=== PATIENT | male | born 1945 | race Caucasian/White ===

== ENCOUNTER 2016-08-09 10:48 | Emergency (ER) | payer MEDICARE ==
[~2016-08-09 10:48] MED LIST: ASPI325T4 PO; ATOR20TA58 PO; BRIM5DRO2 OU; CHOL100017 PO; ESCI10TA PO; HYDR-971 PO; LACO50TA PO; LEVE250T30 PO; LEVO75TA5 PO; METF500T PO; METH-37 PO; METO5TAB4 PO; NAPR550T PO; POTA10TA17 PO; PRED-220 PO; TRAM50TA PO; VENTOLIN HFA18 GM INH
--- NOTE | 2016-08-09 11:09 | PHYS DOC ---
Past Medical History Past Medical History: Diabetes-Type II, Hypothyroid, Seizure Additional Past Medical Histor: GLAUCOMA, CATARACTS, L SIDE HEART BLOCK, PITUITARY TUMOR,POSS. CVA Past Surgical History: Other Additional Past Surgical Histo: right shoulder Alcohol Use: Occasionally Drug Use: None Adult General Chief Complaint Chief Complaint: MECHANICAL FALL HPI HPI 71-year-old male with known history of pituitary adenoma and seizure disorder who had a witnessed fall approximately 45 minutes prior to arrival by his . Patient is on anticoagulants. Patient has been acutely altered since the fall but she denies any seizure activity with this event. Patient cannot answer my questions but does respond to painful stimulus. He is moving all his extremities. He is acutely altered but does not appear overtly toxic or in distress. At the bedside states she awoke at 8 AM and found the patient sitting upright with noted skin tears to his right forearm but the patient appeared confused and unsure how he got the skin tears. She believes he was normal last evening prior to bed. She does not believe the patient was displaying any seizure activity with his fall or while she was awake today. Patient can not provide adequate history secondary to being acutely altered. Review of Systems Review of Systems A 10 point review systems is unable be obtained due to the patient's mental status. Current Medications Current Medications Current Medications Medications (Trade) Dose Ordered Sig/Sim Start Time Stop Time Status Last Admin Dose Admin Alteplase, Recombinant 0 ml @ 0 mls/hr Q1H 08/09/16 12:15 08/09/16 12:16 UNV Alteplase, Recombinant 7.2 mg/Miscellaneous 7.2 ml @ 432 mls/hr 1X ONCE 08/09/16 12:15 08/09/16 12:16 DC Dextrose (Dextrose 50%-Water Syringe) 25 gm 1X ONCE 08/09/16 13:00 08/09/16 13:01 DC 08/09/16 12:50 25 GM Labetalol HCl 10 mg 10 mg PRN Q10MIN PRN 08/09/16 12:15 08/09/16 13:51 DC Nicardipine HCl/ Sodium Chloride (Cardene/Iv Sodium Chloride 0.9% 250ml) 270 ml @ 27 mls/hr CONT PRN PRN 08/09/16 12:15 08/09/16 13:51 DC Sodium Chloride (Iv Sodium Chloride 0.9% 50ml) 50 ml @ 0 mls/hr 1X ONCE 08/09/16 12:15 08/09/16 12:16 DC Allergies Allergies Allergies Coded Allergies Type Severity Reaction Last Updated Verified No Known Drug Allergies 06/02/15 No Physical Exam Physical Exam Constitutional: Well developed, well nourished, no acute distress, non-toxic appearance. [] HENT: Normocephalic, atraumatic, bilateral external ears normal, oropharynx moist, no oral exudates, nose normal. [] Eyes: PERRLA, lateral gaze preference to the right, conjunctiva normal, no discharge. [] Neck: Normal range of motion, no tenderness, supple, no stridor. [] Cardiovascular:Heart rate regular rhythm, no murmur [] Lungs & Thorax: Bilateral breath sounds clear to auscultation [] Abdomen: Bowel sounds normal, soft, no tenderness, no masses, no pulsatile masses. [] Skin: Warm, dry, no erythema, no rash. [] Back: No tenderness, no CVA tenderness. [] Extremities: No tenderness, there is a skin tear to the right forearm, no cyanosis, no clubbing, ROM intact, no edema. [] Neurologic: Alert and oriented X 1, there is some noted left-sided weakness to the lower extremity, patient has a gaze preference to the right but can track to the midline bilaterally, a bedside NIHSS is 14. [] Psychologic: Affect normal, judgement normal, mood normal. [] Current Patient Data Vital Signs Vital Signs Date Time Temp Pulse Resp B/P Pulse Ox O2 Delivery O2 Flow Rate FiO2 08/09/16 12:49 82 14 106/78 94 Room Air 4 08/09/16 10:50 97.4 97.4 Lab Values Laboratory Tests Test 08/09/16 11:07 08/09/16 11:34 08/09/16 12:39 Urine Collection Type Unknown Urine Color Yellow Urine Clarity Clear Urine pH 6.5 Urine Specific [place] 1.010 Urine Protein Negativemg/dL (NEG-TRACE) Urine Glucose (UA) Negativemg/dL (NEG) Urine Ketones (Stick) Negativemg/dL (NEG) Urine Blood Trace (NEG) Urine Nitrite Negative (NEG) Urine Bilirubin Negative (NEG) Urine Urobilinogen Dipstick 0.2mg/dL (0.2 mg/dL) Urine Leukocyte Esterase Negative (NEG) Urine RBC 0/HPF (0-2) Urine WBC 0/HPF (0-4) Urine Bacteria 0/HPF (0-FEW) White Blood Count 13.8x10^3/uL (4.0-11.0) H Red Blood Count 4.86x10^6/uL (4.30-5.70) Hemoglobin 13.5g/dL (13.0-17.5) Hematocrit 41.6% (39.0-53.0) Mean Corpuscular Volume 86fL (79-100) Mean Corpuscular Hemoglobin 28pg (25-35) Mean Corpuscular Hemoglobin Concent 32g/dL (31-37) Red Cell Distribution Width 15.7% (11.5-14.5) H Platelet Count 298x10^3/uL (140-400) Neutrophils (%) (Auto) 53% (31-73) Lymphocytes (%) (Auto) 36% (24-48) Monocytes (%) (Auto) 6% (0-9) Eosinophils (%) (Auto) 3% (0-3) Basophils (%) (Auto) 1% (0-3) Neutrophils # (Auto) 7.4x10^3uL (1.8-7.7) Lymphocytes # (Auto) 5.0x10^3/uL (1.0-4.8) H Monocytes # (Auto) 0.9x10^3/uL (0.0-1.1) Eosinophils # (Auto) 0.4x10^3/uL (0.0-0.7) Basophils # (Auto) 0.2x10^3/uL (0.0-0.2) Prothrombin Time 12.4SEC (11.7-14.0) Prothrombin Time INR 1.0 (0.8-1.1) Sodium Level 123mmol/L (136-145) L Potassium Level 3.9mmol/L (3.5-5.1) Chloride Level 89mmol/L (98-107) L Carbon Dioxide Level 27mmol/L (21-32) Anion Gap 7 (6-14) Blood Urea Nitrogen 12mg/dL (8-26) Creatinine 0.8mg/dL (0.7-1.3) Estimated GFR (Cockcroft-Gault) 95.8 Glucose Level 92mg/dL (70-99) Calcium Level 8.8mg/dL (8.5-10.1) Troponin I Quantitative < 0.017ng/mL (0.000-0.055) Glucose (Fingerstick) 67mg/dL (70-99) L Laboratory Tests 08/09/16 11:34 Laboratory Tests 08/09/16 11:34 EKG EKG EKG as interpreted by me shows sinus rhythm with rate of 76 bpm. Intervals are normal. This EKG does not meet STEMI criteria. Radiology/Procedures Radiology/Procedures Exam: AP portable chest. History: Weakness, confusion, fall. Comparison: 04/09/2016. Findings: The heart and mediastinal structures are within normal limits for size. Lungs are without focal consolidation. Linear densities are again seen involving both lungs, compatible with scarring. No pneumothorax or pleural effusion is appreciated. Proximal right humerus demonstrates fixation hardware. Impression: 1. No acute cardiopulmonary process. CT head without contrast History: Fall, altered mental status, anticoagulated. Comparison: CT head 04/09/2016. Procedure: Axial images are obtained of the head from the skull base through the vertex without IV contrast. One or more of the following individualized dose reduction techniques were utilized for the study: Automated exposure control Adjustment of mA and/or kV according to patient's size Use of iterative reconstruction technique. Findings: The ventricles and sulci are normal for the patient's age. No mass-effect, intracranial mass, midline shift, hemorrhage or obvious acute infarction is identified. Basilar cisterns are patent. Patchy, nonspecific white matter low attenuation is seen, probably from chronic microvascular ischemic disease. Bone windows demonstrate no significant calvarial abnormality. The visualized paranasal sinuses appear clear. Impression: 1. No acute intracranial process. Please note that CT can be relatively insensitive to acute ischemic infarction for up to 24 hours after symptom onset. 2. Mild, patchy, nonspecific white matter low attenuation, probably from chronic microvascular ischemic disease. Course & Med Decision Making Course & Med Decision Making Pertinent Labs and Imaging studies reviewed. (See chart for details) This 71-year-old male who had a witnessed fall at home will receive a head CT. Patient is on anticoagulants and is acutely altered. We will immediately rule out any acute traumatic brain injury and then the patient will obtain full laboratory workup for his ongoing altered mental status. The does not believe that the patient did not have a seizure prior to his fall. At this time, his laboratory workup is unremarkable. His initial blood glucose was 92 but it trended down to 67 so half an amp of dextrose was provided. A CT of his head does show suspicion for a hyperdense right-sided MCA and in light of his continued altered mental status and neurologic exam I would like the patient to be emergently transferred to [facility] for possible catheterization and neurologic intervention for acute stroke. It is unclear what the initial time of onset was for his symptoms and as such I do not believe him to be a TPA candidate prior to transport. The case was also discussed with the accepting neurologist, Dr. Armas, at [facility] who agreed to send the patient emergently where he will likely receive interventional radiology on arrival. This was also discussed with the neurologist, Dr. Salinas, who agreed with the transferred to [facility]. Approximately 30 minutes of critical care time were used on this patient in consultation with specialists. His blood pressure remained normotensive while in the department and did not require any intervention. Dragon Disclaimer Dragon Disclaimer This electronic medical record was generated, in whole or in part, using a voice recognition dictation system. Critical Care Time Critical care time was 30 minutes exclusive of procedures. Departure Departure Impression: Primary Impression: Altered mental status Additional Impression: Neurological deficit present Disposition: 02 TRANSFER T-[facility] Admitting Physician: Other Condition: STABLE Referrals: YOBANY LUU MD (PCP) Problem Qualifiers MAGDA MANN DO Aug 09, 2016 11:09
--- NOTE | 2016-08-09 11:28 | EKG ---
[facility] [address] [place] [address] Test Date: 2016-08-09 Test Time: 10:56:12 Pat Name: JULIA SYKES Department: Room: Gender: M [employer]: : 1945 Requested By: MAGDA MANN Order Number: [id number] Reading MD: Measurements Intervals [place] Rate: 76 P: 19 ID: [id number] QRS: 26 QRSD: 80 T: 31 QT: 386 QTc: 439 Interpretive Statements SINUS RHYTHM QRS(T) CONTOUR ABNORMALITY CONSIDER ANTEROSEPTAL MYOCARDIAL DAMAGE POSSIBLY ABNORMAL ECG RI6.01 No previous ECG available for comparison
--- NOTE | 2016-08-09 11:34 | RAD ---
CT head without contrast History: Fall, altered mental status, anticoagulated. Comparison: CT head 04/09/2016. Procedure: Axial images are obtained of the head from the skull base through the vertex without IV contrast. One or more of the following individualized dose reduction techniques were utilized for the study: Automated exposure control Adjustment of mA and/or kV according to patient's size Use of iterative reconstruction technique. Findings: The ventricles and sulci are normal for the patient's age. No mass-effect, intracranial mass, midline shift, hemorrhage or obvious acute infarction is identified. Basilar cisterns are patent. Patchy, nonspecific white matter low attenuation is seen, probably from chronic microvascular ischemic disease. Bone windows demonstrate no significant calvarial abnormality. The visualized paranasal sinuses appear clear. Impression: 1. No acute intracranial process. Please note that CT can be relatively insensitive to acute ischemic infarction for up to 24 hours after symptom onset. 2. Mild, patchy, nonspecific white matter low attenuation, probably from chronic microvascular ischemic disease.
--- NOTE | 2016-08-09 11:35 | RAD ---
Exam: AP portable chest. History: Weakness, confusion, fall. Comparison: 04/09/2016. Findings: The heart and mediastinal structures are within normal limits for size. Lungs are without focal consolidation. Linear densities are again seen involving both lungs, compatible with scarring. No pneumothorax or pleural effusion is appreciated. Proximal right humerus demonstrates fixation hardware. Impression: 1. No acute cardiopulmonary process.
[2016-08-09 11:46] LABS: BASO # 0.2 x10^3/uL (0.0-0.2); BASO % 1 % (0-3); EOS % 3 % (0-3); HEMATOCRIT 41.6 % (39.0-53.0); HEMOGLOBIN 13.5 g/dL (13.0-17.5); LYMPH % 36 % (24-48); MEAN CORPUSCULAR HEMOGLOBIN 28 pg (25-35); MEAN CORPUSCULAR HGB CONC 32 g/dL (31-37); MEAN CORPUSCULAR VOLUME 86 fL (79-100); MONO % 6 % (0-9); NEUT % 53 % (31-73); PLATELET COUNT 298 x10^3/uL (140-400); RED BLOOD COUNT 4.86 x10^6/uL (4.30-5.70); RED CELL DISTRIBUTION WIDTH 15.7 % (11.5-14.5); WHITE BLOOD COUNT 13.8 x10^3/uL (4.0-11.0)
[2016-08-09 11:48] LABS: BILIRUBIN,URINE NEGATIVE (NEG); GLUCOSE,URINE NEGATIVE (NEG); NITRITE,URINE NEGATIVE (NEG); PH,URINE 6.5; PROTEIN,URINE NEGATIVE (NEG-TRACE); UROBILINOGEN,URINE 0.2 mg/dL (0.2 mg/dL)
[2016-08-09 11:52] LABS: BACTERIA,URINE 0 /HPF (0-FEW); RBC,URINE 0 /HPF (0-2); WBC,URINE 0 /HPF (0-4)
[2016-08-09 11:55] LABS: PROTHROMBIN TIME PATIENT 12.4 SEC (11.7-14.0)
[2016-08-09 12:00] LABS: CALCIUM 8.8 mg/dL (8.5-10.1); CREATININE 0.8 mg/dL (0.7-1.3); GFR 95.8; POTASSIUM 3.9 mmol/L (3.5-5.1)
[2016-08-09] MEDS ORDERED: ALTEPLASE IV ONE ×2 (12:15)
[2016-08-09] MEDS ORDERED: TOTAL VOLUME IV ONE (12:15)
[2016-08-09] MEDS ORDERED: LABETALOL 20 MG/4 ML DISP.SYRIN. IV PRN (12:15)
[2016-08-09] MEDS ORDERED: ALTEPLASE 9 MG IV ONE (12:15)
[2016-08-09] MEDS ORDERED: NICARDIPINE HCL 50 MG in IV NORMAL SALINE 250ML 250 ML IV PRN (12:15)
[2016-08-09] MEDS ORDERED: IV NORMAL SALINE 50ML 50 ML IV ONE (12:15)
[2016-08-09] MEDS ORDERED: ALTEPLASE 81 MG IV SCH (12:15)
[2016-08-09 12:49] VITALS: BP 106/78
[2016-08-09] MEDS ORDERED: DEXTROSE 50% 25 GM / 50ML DISP.SYRIN. IV ONE (13:00)
== END 2016-08-09 13:51 | disposition short-term general hospital (02) ==
LOC: ER 10:48
DX: S51.811A Laceration without foreign body of right forearm, initial encounter (principal); R41.82 Altered mental status, unspecified; R29.818 Other symptoms and signs involving the nervous system; R41.0 Disorientation, unspecified; R53.1 Weakness; G40.909 Epilepsy, unspecified, not intractable, without status epilepticus; E11.9 Type 2 diabetes mellitus without complications; E03.9 Hypothyroidism, unspecified; H40.9 Unspecified glaucoma; W18.39XA Other fall on same level, initial encounter; Y93.89 Activity, other specified; Y92.89 Other specified places as the place of occurrence of the external cause; Y99.8 Other external cause status
CPT/HCPCS: 36415; 70450; 71010; 80048; 81001; 82947; 84484; 85027; 85610; 93005; 96374; J7042; 99291-25

== ENCOUNTER 2016-10-14 10:58 | Emergency (ER) | payer MEDICARE ==
[~2016-10-14] VITALS: Ht 172.7 cm; Wt 83.5 kg
[~2016-10-14 10:58] MED LIST changes: -ASPI325T4 PO; +ASPI325T8 PO; -ESCI10TA PO; +ESCITALOPRAM OX10 MG PO
[2016-10-14 12:09] LABS: BASO # 0.1 x10^3/uL (0.0-0.2); BASO % 1 % (0-3); EOS % 1 % (0-3); HEMATOCRIT 30.5 % (39.0-53.0); HEMOGLOBIN 10.1 g/dL (13.0-17.5); LYMPH # 2.2 x10^3/uL (1.0-4.8); LYMPH % 16 % (24-48); MEAN CORPUSCULAR HEMOGLOBIN 28 pg (25-35); MEAN CORPUSCULAR HGB CONC 33 g/dL (31-37); MEAN CORPUSCULAR VOLUME 83 fL (79-100); MONO % 6 % (0-9); NEUT % 76 % (31-73); PLATELET COUNT 296 x10^3/uL (140-400); RED BLOOD COUNT 3.67 x10^6/uL (4.30-5.70); RED CELL DISTRIBUTION WIDTH 14.9 % (11.5-14.5); WHITE BLOOD COUNT 13.4 x10^3/uL (4.0-11.0)
[2016-10-14 12:13] LABS: CALCIUM 8.5 mg/dL (8.5-10.1); CREATININE 0.8 mg/dL (0.7-1.3); GFR 95.8; POTASSIUM 4.4 mmol/L (3.5-5.1)
[2016-10-14 12:19] LABS: PROTHROMBIN TIME PATIENT 12.9 SEC (11.7-14.0)
[2016-10-14 12:20] LABS: ALBUMIN 3.5 g/dL (3.4-5.0); MAGNESIUM 1.9 mg/dL (1.8-2.4); TOTAL BILIRUBIN 0.2 mg/dL (0.2-1.0)
--- NOTE | 2016-10-14 12:59 | RAD ---
Left lower extremity arterial duplex study 10/14/2016 Clinical history: Pale/cold left foot. Technique: Using a combination of real-time ultrasound imaging and color-flow and pulse Doppler imaging techniques, duplex evaluation of the major arterial structures of the left lower extremity was performed. Multiple images were obtained. Findings: Mild to moderate atheromatous/atherosclerotic plaque formation is seen involving the major arterial structures of the left lower extremity. Biphasic arterial waveforms are seen throughout. The peak systolic velocity within the distal left superficial femoral artery is elevated measuring 211 cm/s. When compared to the real-time images there appears to be 50% stenosis in this area. No additional area of stenosis is seen. The left peroneal artery is not visualized. It may be occluded. Impression: 1. Mild to moderate atheromatous/atherosclerotic plaque formation is seen involving the major arterial structures of the left lower extremity. A 50% stenosis is seen involving the distal left superficial femoral artery. 2. The left peroneal artery is not visualized. It may be occluded.
[2016-10-14] MEDS ORDERED: SULF1TAB23 PO (13:54)
--- NOTE | 2016-10-14 13:55 | PHYS DOC ---
Past Medical History Past Medical History: Diabetes-Type II, Hypothyroid, Seizure Additional Past Medical Histor: GLAUCOMA, CATARACTS, L SIDE HEART BLOCK, PITUITARY TUMOR,POSS. CVA Past Surgical History: Other Additional Past Surgical Histo: right shoulder Alcohol Use: Occasionally Drug Use: None Adult General Chief Complaint Chief Complaint: LOWER EXTREMITY SWELLING HPI HPI Patient is a 71 year old male presenting to the [facility] department for evaluation of a right medial leg wound that has been an ongoing issue for weeks and per home health it appears worse in the recommended wound care but the patient refused so they forced him to come to the emergency department. He says that he does not want to be here and he says the redness is not that much worse than usual. He has obvious vascular disease as he has delayed cap refill in both legs and I cannot palpate a pulse in his left foot and it is cold in his right foot. He doesn't have any increased pain in fact his right foot hurts worse than his left foot. Patient is in no obvious distress with normal vital signs. Review of Systems Review of Systems Constitutional: Denies fever or chills [] Eyes: Denies change in visual acuity, redness, or eye pain [] HENT: Denies nasal congestion or sore throat [] Respiratory: Denies cough or shortness of breath [] Cardiovascular: No additional information not addressed in HPI [] GI: Denies abdominal pain, nausea, vomiting, bloody stools or diarrhea [] : Denies dysuria or hematuria [] Musculoskeletal: Denies back pain or joint pain [] Integument: Positive cellulitis on right medial leg Neurologic: Denies headache, focal weakness or sensory changes [] Current Medications Current Medications Current Medications Medications (Trade) Dose Ordered Sig/Sim Start Time Stop Time Status Last Admin Dose Admin Ceftriaxone Sodium 2 gm/ Sodium Chloride 100 ml @ 200 mls/hr Q24H 10/14/16 12:00 10/14/16 12:21 200 MLS/HR Allergies Allergies Allergies Coded Allergies Type Severity Reaction Last Updated Verified No Known Drug Allergies 06/02/15 No Physical Exam Physical Exam Constitutional: Well developed, well nourished, no acute distress, non-toxic appearance. [] HENT: Normocephalic, atraumatic, bilateral external ears normal, oropharynx moist, no oral exudates, nose normal. [] Eyes: PERRLA, EOMI, conjunctiva normal, no discharge. [] Neck: Normal range of motion, no tenderness, supple, no stridor. [] Cardiovascular:Heart rate regular rhythm, no murmur [] Lungs & Thorax: Bilateral breath sounds clear to auscultation [] Abdomen: Bowel sounds normal, soft, no tenderness, no masses, no pulsatile masses. [] Skin: Warm, dry, no erythema, no rash. [] Back: No tenderness, no CVA tenderness. [] Extremities: Cap refill is approximately 6 seconds in left leg and 4 seconds and right leg. Right leg medially has approximate 6 x 6 cm cellulitis but no drainage or abscess. I can feel dorsalis pedis and right foot but no pulse palpable in his left foot. Neurologic: Alert and oriented X 3, normal motor function, normal sensory function, no focal deficits noted. [] Current Patient Data Vital Signs Vital Signs Date Time Temp Pulse Resp B/P (MAP) Pulse Ox O2 Delivery O2 Flow Rate FiO2 10/14/16 11:38 98.8 75 20 158/78 (104) 95 Room Air 98.8 Lab Values Laboratory Tests Test 10/14/16 11:50 White Blood Count 13.4 x10^3/uL (4.0-11.0) H Red Blood Count 3.67 x10^6/uL (4.30-5.70) L Hemoglobin 10.1 g/dL (13.0-17.5) L Hematocrit 30.5 % (39.0-53.0) L Mean Corpuscular Volume 83 fL (79-100) Mean Corpuscular Hemoglobin 28 pg (25-35) Mean Corpuscular Hemoglobin Concent 33 g/dL (31-37) Red Cell Distribution Width 14.9 % (11.5-14.5) H Platelet Count 296 x10^3/uL (140-400) Neutrophils (%) (Auto) 76 % (31-73) H Lymphocytes (%) (Auto) 16 % (24-48) L Monocytes (%) (Auto) 6 % (0-9) Eosinophils (%) (Auto) 1 % (0-3) Basophils (%) (Auto) 1 % (0-3) Neutrophils # (Auto) 10.2 x10^3uL (1.8-7.7) H Lymphocytes # (Auto) 2.2 x10^3/uL (1.0-4.8) Monocytes # (Auto) 0.7 x10^3/uL (0.0-1.1) Eosinophils # (Auto) 0.2 x10^3/uL (0.0-0.7) Basophils # (Auto) 0.1 x10^3/uL (0.0-0.2) Prothrombin Time 12.9 SEC (11.7-14.0) Prothrombin Time INR 1.0 (0.8-1.1) PTT 30 SEC (24-38) Sodium Level 131 mmol/L (136-145) L Potassium Level 4.4 mmol/L (3.5-5.1) Chloride Level 94 mmol/L (98-107) L Carbon Dioxide Level 30 mmol/L (21-32) Anion Gap 7 (6-14) Blood Urea Nitrogen 20 mg/dL (8-26) Creatinine 0.8 mg/dL (0.7-1.3) Estimated GFR (Cockcroft-Gault) 95.8 BUN/Creatinine Ratio 25 (6-20) H Glucose Level 99 mg/dL (70-99) Calcium Level 8.5 mg/dL (8.5-10.1) Magnesium Level 1.9 mg/dL (1.8-2.4) Total Bilirubin 0.2 mg/dL (0.2-1.0) Aspartate Amino Transferase (AST) 21 U/L (15-37) Alanine Aminotransferase (ALT) 20 U/L (16-63) Alkaline Phosphatase 72 U/L (46-116) Creatine Kinase 166 U/L (39-308) Total Protein 7.0 g/dL (6.4-8.2) Albumin 3.5 g/dL (3.4-5.0) Albumin/Globulin Ratio 1.0 (1.0-1.7) Laboratory Tests 10/14/16 11:50 Laboratory Tests 10/14/16 11:50 EKG EKG [] Radiology/Procedures Radiology/Procedures Left lower extremity arterial duplex study 10/14/2016 Clinical history: Pale/cold left foot. Technique: Using a combination of real-time ultrasound imaging and color-flow and pulse Doppler imaging techniques, duplex evaluation of the major arterial structures of the left lower extremity was performed. Multiple images were obtained. Findings: Mild to moderate atheromatous/atherosclerotic plaque formation is seen involving the major arterial structures of the left lower extremity. Biphasic arterial waveforms are seen throughout. The peak systolic velocity within the distal left superficial femoral artery is elevated measuring 211 cm/s. When compared to the real-time images there appears to be 50% stenosis in this area. No additional area of stenosis is seen. The left peroneal artery is not visualized. It may be occluded. Impression: 1. Mild to moderate atheromatous/atherosclerotic plaque formation is seen involving the major arterial structures of the left lower extremity. A 50% stenosis is seen involving the distal left superficial femoral artery. 2. The left peroneal artery is not visualized. It may be occluded. DICTATED and SIGNED BY: LARRY DAILEY MD DATE: 10/14/16 1241 Course & Med Decision Making Course & Med Decision Making Patient with thrombosis to his left leg and a cellulitis in his right leg. I spoke to patient and recommended admission for IV antibiotics however patient refused stating he rather go home and follow with his doctor as he has an appointment tomorrow at 10:15. I spoke to the vascular surgeon Dr. Addison and he is okay with outpatient care for his vascular disease. I spoke to Dr. Mckinney and he said a patient is refusing to go home to start him on Bactrim and he will see the patient tomorrow morning to see if he is improving or not. Patient aware and agreeable with plan for discharge and verbalized understanding of the need for these to follow-up appointments. Patient discharged in stable condition. Dragon Disclaimer Dragon Disclaimer This electronic medical record was generated, in whole or in part, using a voice recognition dictation system. Departure Departure Impression: Primary Impression: Cellulitis of leg without foot, right Additional Impressions: Leukocytosis Lower limb ischemia Disposition: HOME, SELF-CARE Condition: STABLE Referrals: YOBANY MCKINNEY MD (PCP) YOBANY ARITA MD Patient Instructions: Cellulitis Additional Instructions: Take the Bactrim as prescribed and follow with her doctor tomorrow and come back to the ER sooner with any worsening pain fevers or other general concerns. Scripts Sulfamethoxazole/Trimethoprim (BACTRIM 400-80 MG TABLET) 1 Each Tablet 1 TAB PO BID, #14 TAB Prov: JING AVERY DO 10/14/16 Problem Qualifiers JING AVERY DO Oct 14, 2016 13:55
[2016-10-14 14:00] VITALS: BP 141/66
[2016-10-20] MEDS ORDERED: ESCITALOPRAM OX10 MG PO (08:10)
[2016-10-20] MEDS ORDERED: PRAV10TA2 PO (08:10)
[2016-10-20] MEDS ORDERED: ASPI-612 PO (08:10)
[2016-10-20] MEDS ORDERED: LEVO50TA5 PO (13:02)
== END 2016-10-14 14:15 | disposition home or self-care (01) ==
LOC: ER 10:58
DX: L03.115 Cellulitis of right lower limb (principal); I82.402 Acute embolism and thrombosis of unspecified deep veins of left lower extremity; D72.829 Elevated white blood cell count, unspecified; I99.8 Other disorder of circulatory system; I70.292 Other atherosclerosis of native arteries of extremities, left leg; E03.9 Hypothyroidism, unspecified; E11.39 Type 2 diabetes mellitus with other diabetic ophthalmic complication; H40.9 Unspecified glaucoma; E11.36 Type 2 diabetes mellitus with diabetic cataract; Z86.73 Personal history of transient ischemic attack (TIA), and cerebral infarction without residual deficits
CPT/HCPCS: 36415; 80053; 82550; 83735; 85027; 85610; 85730; 93923; 96365; 99285; J0696

== ENCOUNTER → 2016-10-28 | Outpatient (CLI) | payer MEDICARE ==
[2016-10-22 15:00] VITALS: BP 128/63
[~2016-10-28] MED LIST changes: +ASPI-612 PO; +CLIN300C8 PO; +LEVO50TA5 PO; +PRAV10TA2 PO; +SULF1TAB23 PO
== END | disposition home or self-care (01) ==
LOC: PMGWOUND 10:32
PROVIDERS: ATTEND Emergency Medicine Undersea and Hyperbaric Medicine
DX: E11.621 Type 2 diabetes mellitus with foot ulcer (principal); I87.313 Chronic venous hypertension (idiopathic) with ulcer of bilateral lower extremity; L97.211 Non-pressure chronic ulcer of right calf limited to breakdown of skin; L97.221 Non-pressure chronic ulcer of left calf limited to breakdown of skin; E03.9 Hypothyroidism, unspecified; E87.1 Hypo-osmolality and hyponatremia; J44.9 Chronic obstructive pulmonary disease, unspecified; I25.10 Atherosclerotic heart disease of native coronary artery without angina pectoris; K21.9 Gastro-esophageal reflux disease without esophagitis; F17.210 Nicotine dependence, cigarettes, uncomplicated; F32.9 Major depressive disorder, single episode, unspecified; M19.90 Unspecified osteoarthritis, unspecified site; E78.00 Pure hypercholesterolemia, unspecified; E11.51 Type 2 diabetes mellitus with diabetic peripheral angiopathy without gangrene; Z86.73 Personal history of transient ischemic attack (TIA), and cerebral infarction without residual deficits; Z86.718 Personal history of other venous thrombosis and embolism
CPT/HCPCS: 82962; 99214

== ENCOUNTER → 2016-11-04 | Outpatient (CLI) | payer MEDICARE ==
[2016-10-22 15:00] VITALS: BP 128/63
== END | disposition home or self-care (01) ==
LOC: PMGWOUND 11:16
PROVIDERS: ATTEND Emergency Medicine Undersea and Hyperbaric Medicine
DX: I87.313 Chronic venous hypertension (idiopathic) with ulcer of bilateral lower extremity (principal); L97.211 Non-pressure chronic ulcer of right calf limited to breakdown of skin; L97.221 Non-pressure chronic ulcer of left calf limited to breakdown of skin; J44.9 Chronic obstructive pulmonary disease, unspecified; K21.9 Gastro-esophageal reflux disease without esophagitis; E03.9 Hypothyroidism, unspecified; F32.9 Major depressive disorder, single episode, unspecified; E78.00 Pure hypercholesterolemia, unspecified; E11.51 Type 2 diabetes mellitus with diabetic peripheral angiopathy without gangrene; M19.90 Unspecified osteoarthritis, unspecified site; M81.0 Age-related osteoporosis without current pathological fracture; E11.39 Type 2 diabetes mellitus with other diabetic ophthalmic complication; I25.10 Atherosclerotic heart disease of native coronary artery without angina pectoris; G40.909 Epilepsy, unspecified, not intractable, without status epilepticus; Z86.73 Personal history of transient ischemic attack (TIA), and cerebral infarction without residual deficits; F17.210 Nicotine dependence, cigarettes, uncomplicated; Z88.5 Allergy status to narcotic agent; Z86.718 Personal history of other venous thrombosis and embolism
CPT/HCPCS: 99214

== ENCOUNTER → 2016-11-11 | Outpatient (CLI) | payer MEDICARE ==
[2016-10-22 15:00] VITALS: BP 128/63
== END | disposition home or self-care (01) ==
LOC: PMGWOUND 13:24
PROVIDERS: ATTEND Emergency Medicine Undersea and Hyperbaric Medicine
DX: I87.313 Chronic venous hypertension (idiopathic) with ulcer of bilateral lower extremity (principal); E11.622 Type 2 diabetes mellitus with other skin ulcer; L97.211 Non-pressure chronic ulcer of right calf limited to breakdown of skin; L97.221 Non-pressure chronic ulcer of left calf limited to breakdown of skin; E03.9 Hypothyroidism, unspecified; J44.9 Chronic obstructive pulmonary disease, unspecified; G40.909 Epilepsy, unspecified, not intractable, without status epilepticus; K21.9 Gastro-esophageal reflux disease without esophagitis; F32.9 Major depressive disorder, single episode, unspecified; E78.00 Pure hypercholesterolemia, unspecified; E11.51 Type 2 diabetes mellitus with diabetic peripheral angiopathy without gangrene; M19.90 Unspecified osteoarthritis, unspecified site; E11.39 Type 2 diabetes mellitus with other diabetic ophthalmic complication; E11.36 Type 2 diabetes mellitus with diabetic cataract; F17.210 Nicotine dependence, cigarettes, uncomplicated; Z88.5 Allergy status to narcotic agent; Z86.73 Personal history of transient ischemic attack (TIA), and cerebral infarction without residual deficits
CPT/HCPCS: 29581

== ENCOUNTER → 2016-11-14 | Outpatient (CLI) | payer MEDICARE ==
[2016-10-22 15:00] VITALS: BP 128/63
== END | disposition home or self-care (01) ==
LOC: PMGWOUND 07:26
PROVIDERS: ATTEND Emergency Medicine Undersea and Hyperbaric Medicine
DX: I87.313 Chronic venous hypertension (idiopathic) with ulcer of bilateral lower extremity (principal); E11.622 Type 2 diabetes mellitus with other skin ulcer; L97.211 Non-pressure chronic ulcer of right calf limited to breakdown of skin; L97.221 Non-pressure chronic ulcer of left calf limited to breakdown of skin; E03.9 Hypothyroidism, unspecified; J44.9 Chronic obstructive pulmonary disease, unspecified; G40.909 Epilepsy, unspecified, not intractable, without status epilepticus; K21.9 Gastro-esophageal reflux disease without esophagitis; F32.9 Major depressive disorder, single episode, unspecified; E78.00 Pure hypercholesterolemia, unspecified; E11.36 Type 2 diabetes mellitus with diabetic cataract; E11.39 Type 2 diabetes mellitus with other diabetic ophthalmic complication; E11.51 Type 2 diabetes mellitus with diabetic peripheral angiopathy without gangrene; M19.90 Unspecified osteoarthritis, unspecified site; M81.0 Age-related osteoporosis without current pathological fracture; D35.2 Benign neoplasm of pituitary gland; F17.210 Nicotine dependence, cigarettes, uncomplicated; Z86.73 Personal history of transient ischemic attack (TIA), and cerebral infarction without residual deficits; Z86.718 Personal history of other venous thrombosis and embolism; Z88.5 Allergy status to narcotic agent; Z88.9 Allergy status to unspecified drugs, medicaments and biological substances
CPT/HCPCS: 29581

== ENCOUNTER → 2016-11-18 | Outpatient (CLI) | payer MEDICARE ==
[2016-10-22 15:00] VITALS: BP 128/63
== END | disposition home or self-care (01) ==
LOC: PMGWOUND 08:50
PROVIDERS: ATTEND Emergency Medicine Undersea and Hyperbaric Medicine
DX: I87.313 Chronic venous hypertension (idiopathic) with ulcer of bilateral lower extremity (principal); E11.622 Type 2 diabetes mellitus with other skin ulcer; L97.211 Non-pressure chronic ulcer of right calf limited to breakdown of skin; L97.221 Non-pressure chronic ulcer of left calf limited to breakdown of skin; E03.9 Hypothyroidism, unspecified; E87.1 Hypo-osmolality and hyponatremia; J44.9 Chronic obstructive pulmonary disease, unspecified; F17.210 Nicotine dependence, cigarettes, uncomplicated; M81.0 Age-related osteoporosis without current pathological fracture; K21.9 Gastro-esophageal reflux disease without esophagitis; F32.9 Major depressive disorder, single episode, unspecified; E78.00 Pure hypercholesterolemia, unspecified; E11.36 Type 2 diabetes mellitus with diabetic cataract; E11.51 Type 2 diabetes mellitus with diabetic peripheral angiopathy without gangrene; M19.90 Unspecified osteoarthritis, unspecified site; E11.39 Type 2 diabetes mellitus with other diabetic ophthalmic complication; I25.10 Atherosclerotic heart disease of native coronary artery without angina pectoris; Z86.718 Personal history of other venous thrombosis and embolism; Z85.89 Personal history of malignant neoplasm of other organs and systems; Z86.73 Personal history of transient ischemic attack (TIA), and cerebral infarction without residual deficits
CPT/HCPCS: 29581; 97597

== ENCOUNTER → 2016-11-25 | Outpatient (CLI) | payer MEDICARE ==
[2016-10-22 15:00] VITALS: BP 128/63
== END | disposition home or self-care (01) ==
LOC: PMGWOUND 09:23
PROVIDERS: ATTEND Emergency Medicine Undersea and Hyperbaric Medicine
DX: I87.313 Chronic venous hypertension (idiopathic) with ulcer of bilateral lower extremity (principal); L97.211 Non-pressure chronic ulcer of right calf limited to breakdown of skin; L97.221 Non-pressure chronic ulcer of left calf limited to breakdown of skin; M81.0 Age-related osteoporosis without current pathological fracture; I25.10 Atherosclerotic heart disease of native coronary artery without angina pectoris; J44.9 Chronic obstructive pulmonary disease, unspecified; K21.9 Gastro-esophageal reflux disease without esophagitis; E03.9 Hypothyroidism, unspecified; F32.9 Major depressive disorder, single episode, unspecified; E78.00 Pure hypercholesterolemia, unspecified; E11.36 Type 2 diabetes mellitus with diabetic cataract; E11.51 Type 2 diabetes mellitus with diabetic peripheral angiopathy without gangrene; E11.39 Type 2 diabetes mellitus with other diabetic ophthalmic complication; M19.90 Unspecified osteoarthritis, unspecified site; G40.909 Epilepsy, unspecified, not intractable, without status epilepticus; Z85.89 Personal history of malignant neoplasm of other organs and systems; Z86.018 Personal history of other benign neoplasm; Z88.8 Allergy status to other drugs, medicaments and biological substances; Z88.5 Allergy status to narcotic agent; Z86.73 Personal history of transient ischemic attack (TIA), and cerebral infarction without residual deficits; F17.210 Nicotine dependence, cigarettes, uncomplicated; Z86.718 Personal history of other venous thrombosis and embolism; E11.622 Type 2 diabetes mellitus with other skin ulcer
CPT/HCPCS: 29581

== ENCOUNTER → 2016-12-02 | Outpatient (CLI) | payer MEDICARE ==
[2016-10-22 15:00] VITALS: BP 128/63
== END | disposition home or self-care (01) ==
LOC: PMGWOUND 10:23
PROVIDERS: ATTEND Emergency Medicine Undersea and Hyperbaric Medicine
DX: I87.313 Chronic venous hypertension (idiopathic) with ulcer of bilateral lower extremity (principal); E11.622 Type 2 diabetes mellitus with other skin ulcer; L97.211 Non-pressure chronic ulcer of right calf limited to breakdown of skin; L97.221 Non-pressure chronic ulcer of left calf limited to breakdown of skin; E03.9 Hypothyroidism, unspecified; J44.9 Chronic obstructive pulmonary disease, unspecified; E87.1 Hypo-osmolality and hyponatremia; F17.210 Nicotine dependence, cigarettes, uncomplicated; M81.0 Age-related osteoporosis without current pathological fracture; I25.10 Atherosclerotic heart disease of native coronary artery without angina pectoris; K21.9 Gastro-esophageal reflux disease without esophagitis; F32.9 Major depressive disorder, single episode, unspecified; E78.00 Pure hypercholesterolemia, unspecified; E11.36 Type 2 diabetes mellitus with diabetic cataract; E11.51 Type 2 diabetes mellitus with diabetic peripheral angiopathy without gangrene; E11.39 Type 2 diabetes mellitus with other diabetic ophthalmic complication; M19.90 Unspecified osteoarthritis, unspecified site; Z87.891 Personal history of nicotine dependence; Z86.718 Personal history of other venous thrombosis and embolism; Z85.89 Personal history of malignant neoplasm of other organs and systems; Z86.73 Personal history of transient ischemic attack (TIA), and cerebral infarction without residual deficits
CPT/HCPCS: 99214

== ENCOUNTER → 2016-12-16 | Outpatient (CLI) | payer MEDICARE ==
[2016-10-22 15:00] VITALS: BP 128/63
== END | disposition home or self-care (01) ==
LOC: PMGWOUND 10:29
PROVIDERS: ATTEND Emergency Medicine Undersea and Hyperbaric Medicine
DX: I87.313 Chronic venous hypertension (idiopathic) with ulcer of bilateral lower extremity (principal); E11.622 Type 2 diabetes mellitus with other skin ulcer; L97.211 Non-pressure chronic ulcer of right calf limited to breakdown of skin; L97.221 Non-pressure chronic ulcer of left calf limited to breakdown of skin; M81.0 Age-related osteoporosis without current pathological fracture; I25.10 Atherosclerotic heart disease of native coronary artery without angina pectoris; J44.9 Chronic obstructive pulmonary disease, unspecified; K21.9 Gastro-esophageal reflux disease without esophagitis; E03.9 Hypothyroidism, unspecified; F32.9 Major depressive disorder, single episode, unspecified; E78.00 Pure hypercholesterolemia, unspecified; E11.36 Type 2 diabetes mellitus with diabetic cataract; E11.51 Type 2 diabetes mellitus with diabetic peripheral angiopathy without gangrene; E11.39 Type 2 diabetes mellitus with other diabetic ophthalmic complication; M19.90 Unspecified osteoarthritis, unspecified site; G40.909 Epilepsy, unspecified, not intractable, without status epilepticus; F17.210 Nicotine dependence, cigarettes, uncomplicated; Z88.5 Allergy status to narcotic agent; Z88.8 Allergy status to other drugs, medicaments and biological substances; Z86.018 Personal history of other benign neoplasm; Z86.718 Personal history of other venous thrombosis and embolism; Z86.73 Personal history of transient ischemic attack (TIA), and cerebral infarction without residual deficits
CPT/HCPCS: 99214

== ENCOUNTER → 2016-12-23 | Outpatient (CLI) | payer MEDICARE ==
[2016-10-22 15:00] VITALS: BP 128/63
== END | disposition home or self-care (01) ==
LOC: PMGWOUND 09:53
PROVIDERS: ATTEND Emergency Medicine Undersea and Hyperbaric Medicine
DX: I87.313 Chronic venous hypertension (idiopathic) with ulcer of bilateral lower extremity (principal); E11.622 Type 2 diabetes mellitus with other skin ulcer; L97.211 Non-pressure chronic ulcer of right calf limited to breakdown of skin; L97.221 Non-pressure chronic ulcer of left calf limited to breakdown of skin; E03.9 Hypothyroidism, unspecified; Z86.73 Personal history of transient ischemic attack (TIA), and cerebral infarction without residual deficits; J44.9 Chronic obstructive pulmonary disease, unspecified; F17.210 Nicotine dependence, cigarettes, uncomplicated; K21.9 Gastro-esophageal reflux disease without esophagitis; F32.9 Major depressive disorder, single episode, unspecified; E78.00 Pure hypercholesterolemia, unspecified; M19.90 Unspecified osteoarthritis, unspecified site
CPT/HCPCS: 99215

== ENCOUNTER → 2017-01-01 | Outpatient (CLI) | payer MEDICARE ==
[2016-10-22 15:00] VITALS: BP 128/63
[~2017-01-01] MED LIST changes: +NAPR-682 PO; -NAPR550T PO
[2017-01-01 12:58] LABS: CALCIUM 8.8 mg/dL (8.5-10.1); CREATININE 0.9 mg/dL (0.7-1.3); GFR 83.7; POTASSIUM 4.1 mmol/L (3.5-5.1)
[2017-01-01 13:06] LABS: CHOLESTEROL/HDL RATIO 3.7
[2017-01-02 01:12] LABS: VITAMIN D25(OH)TOTAL 28.6 ng/mL (30.0-100.0)
== END | disposition home or self-care (01) ==
LOC: SPEC 12:29
PROVIDERS: ATTEND Family Medicine
DX: E11.9 Type 2 diabetes mellitus without complications (principal); I87.313 Chronic venous hypertension (idiopathic) with ulcer of bilateral lower extremity; L03.116 Cellulitis of left lower limb; E03.9 Hypothyroidism, unspecified; D51.9 Vitamin B12 deficiency anemia, unspecified
CPT/HCPCS: 36415; 80048; 80061; 82306; 82550; 82607; 83036; 84443; 85651

== ENCOUNTER → 2017-01-07 | Outpatient (CLI) | payer MEDICARE ==
[2016-10-22 15:00] VITALS: BP 128/63
[~2017-01-07] MED LIST changes: -NAPR-682 PO; +NAPR550T PO
== END | disposition home or self-care (01) ==
LOC: PMGWOUND 10:15
PROVIDERS: ATTEND Emergency Medicine Undersea and Hyperbaric Medicine
DX: I87.313 Chronic venous hypertension (idiopathic) with ulcer of bilateral lower extremity (principal); E11.622 Type 2 diabetes mellitus with other skin ulcer; L97.221 Non-pressure chronic ulcer of left calf limited to breakdown of skin; L97.211 Non-pressure chronic ulcer of right calf limited to breakdown of skin; E03.9 Hypothyroidism, unspecified; Z86.73 Personal history of transient ischemic attack (TIA), and cerebral infarction without residual deficits; J44.9 Chronic obstructive pulmonary disease, unspecified; F17.210 Nicotine dependence, cigarettes, uncomplicated; K21.9 Gastro-esophageal reflux disease without esophagitis; F32.9 Major depressive disorder, single episode, unspecified; E78.00 Pure hypercholesterolemia, unspecified; M19.90 Unspecified osteoarthritis, unspecified site; I25.10 Atherosclerotic heart disease of native coronary artery without angina pectoris; E11.36 Type 2 diabetes mellitus with diabetic cataract; E11.51 Type 2 diabetes mellitus with diabetic peripheral angiopathy without gangrene
CPT/HCPCS: 99214

== ENCOUNTER → 2017-01-20 | Outpatient (CLI) | payer MEDICARE ==
[2016-10-22 15:00] VITALS: BP 128/63
[~2017-01-20] MED LIST changes: +NAPR-682 PO; -NAPR550T PO
== END | disposition home or self-care (01) ==
LOC: PMGWOUND 08:19
PROVIDERS: ATTEND Emergency Medicine Undersea and Hyperbaric Medicine
DX: S41.111D Laceration without foreign body of right upper arm, subsequent encounter (principal); L03.115 Cellulitis of right lower limb; I25.10 Atherosclerotic heart disease of native coronary artery without angina pectoris; J44.9 Chronic obstructive pulmonary disease, unspecified; K21.9 Gastro-esophageal reflux disease without esophagitis; E03.9 Hypothyroidism, unspecified; F32.9 Major depressive disorder, single episode, unspecified; E78.00 Pure hypercholesterolemia, unspecified; E11.36 Type 2 diabetes mellitus with diabetic cataract; M19.90 Unspecified osteoarthritis, unspecified site; M81.0 Age-related osteoporosis without current pathological fracture; E11.39 Type 2 diabetes mellitus with other diabetic ophthalmic complication; E11.51 Type 2 diabetes mellitus with diabetic peripheral angiopathy without gangrene; F17.210 Nicotine dependence, cigarettes, uncomplicated; Z86.718 Personal history of other venous thrombosis and embolism; Z86.73 Personal history of transient ischemic attack (TIA), and cerebral infarction without residual deficits; Z85.89 Personal history of malignant neoplasm of other organs and systems; Z86.018 Personal history of other benign neoplasm; X58.XXXD Exposure to other specified factors, subsequent encounter
CPT/HCPCS: 29581

== ENCOUNTER → 2017-01-23 | Outpatient (CLI) | payer MEDICARE ==
[2016-10-22 15:00] VITALS: BP 128/63
== END | disposition home or self-care (01) ==
LOC: PMGWOUND 11:22
PROVIDERS: ATTEND Emergency Medicine Undersea and Hyperbaric Medicine
DX: L03.116 Cellulitis of left lower limb (principal); L03.115 Cellulitis of right lower limb; E11.9 Type 2 diabetes mellitus without complications; E03.9 Hypothyroidism, unspecified; J44.9 Chronic obstructive pulmonary disease, unspecified; F17.210 Nicotine dependence, cigarettes, uncomplicated; Z86.73 Personal history of transient ischemic attack (TIA), and cerebral infarction without residual deficits
CPT/HCPCS: 29581

== ENCOUNTER → 2017-01-27 | Outpatient (CLI) | payer MEDICARE ==
[2016-10-22 15:00] VITALS: BP 128/63
== END | disposition home or self-care (01) ==
LOC: PMGWOUND 09:24
PROVIDERS: ATTEND Emergency Medicine Undersea and Hyperbaric Medicine
DX: L03.116 Cellulitis of left lower limb (principal); E11.9 Type 2 diabetes mellitus without complications; E03.9 Hypothyroidism, unspecified; J44.9 Chronic obstructive pulmonary disease, unspecified; F17.210 Nicotine dependence, cigarettes, uncomplicated; M81.0 Age-related osteoporosis without current pathological fracture; I25.10 Atherosclerotic heart disease of native coronary artery without angina pectoris; K21.9 Gastro-esophageal reflux disease without esophagitis; F32.9 Major depressive disorder, single episode, unspecified; E11.36 Type 2 diabetes mellitus with diabetic cataract; E78.00 Pure hypercholesterolemia, unspecified; E11.51 Type 2 diabetes mellitus with diabetic peripheral angiopathy without gangrene; Z86.718 Personal history of other venous thrombosis and embolism; Z86.73 Personal history of transient ischemic attack (TIA), and cerebral infarction without residual deficits
CPT/HCPCS: 99212